=== PATIENT | male | born 1980 | race Hispanic/Latino ===

== ENCOUNTER 2023-02-07 09:20 | Emergency (ER) | payer OTHER ==
[~2023-02-07] VITALS: Ht 175.3 cm; Wt 81.6 kg
[2023-02-07] MEDS ORDERED: TETANUS/DIPHTHERIA TOXOID [ADULT] 0.5 ML VIAL IM ONE (10:30)
[2023-02-07] MEDS ORDERED: BACITRACIN 1 EACH PACKET TP ONE (11:30)
[2023-02-07 12:31] VITALS: BP 122/72; PULSE 68; RESP 16; O2SAT 98
== END 2023-02-07 13:09 | disposition home or self-care (01) ==
LOC: EDH 09:20
DX: S01.312A Laceration without foreign body of left ear, initial encounter (principal); S19.89XA Other specified injuries of other specified part of neck, initial encounter; W45.8XXA Other foreign body or object entering through skin, initial encounter; Y93.89 Activity, other specified; Y92.89 Other specified places as the place of occurrence of the external cause; Y99.8 Other external cause status
CPT/HCPCS: 12011; 70450; 72125; 90471; 90714